=== PATIENT | male | born 1955 | race Caucasian/White ===

== ENCOUNTER 2016-03-08 05:38 | Inpatient (IN) | payer OTHER ==
[~2016-03-08] VITALS: Ht 177.8 cm; Wt 58.1 kg
[~2016-03-08 05:38] MED LIST: BACTDS PO; CEPH-443 PO; METH10TA2 PO; MUPI22OI2 TOP; TRAM50TA2 PO
[2016-03-08 08:33] VITALS: BP 103/65; RESP 18
[2016-03-08 09:50] VITALS: Ht 177.8 cm; Wt 58.1 kg
[2016-03-08] MEDS ORDERED: ONDANSETRON 4 MG TAB PO PRN (10:30)
[2016-03-08] MEDS ORDERED: NACL 0.9% 3 ML SYG IV SCH (10:30)
[2016-03-08] MEDS ORDERED: ACETAMINOPHEN 650 MG SUPP PR PRN (10:30)
[2016-03-08] MEDS ORDERED: ACETAMINOPHEN 325 MG TAB PO PRN (10:30)
[2016-03-08] MEDS ORDERED: DOCUSATE SODIUM 100 MG CAP PO PRN (10:30)
[2016-03-08] MEDS: morphine 2 MG INJ IV PRN ×4 (10:57→23:40)
[2016-03-08] MEDS: SOD CHLORIDE 0.45% 1,000 ML IV SCH ×2 (11:02→23:28)
[2016-03-08] MEDS: LEVOFLOXACIN 500 MG TAB PO SCH (11:03)
[2016-03-08] MEDS: FAMOTIDINE 20 MG TAB PO SCH (11:04)
[2016-03-08] MEDS: METHADONE 10 MG TAB PO SCH (11:04)
[2016-03-08] MEDS: ENOXAPARIN 40 MG/0.4 ML SYG SC SCH (11:09)
[2016-03-08] MEDS: OXYCODONE/ACETAMINOPHEN (5/325) TAB PO PRN ×3 (13:31→22:24)
[2016-03-08] MEDS: CLINDAMYCIN 600 MG/D5W (PMX) 50 ML IVPB SCH ×2 (13:48→22:24)
[2016-03-08] MEDS: NICOTINE (21 MG/24 HR) PATCH TRANSDERM SCH (17:07)
--- NOTE | 2016-03-08 18:19 | HP ---
DATE OF ADMISSION: 03/08/2016 GAMBRELER HELPER: Infectious disease. CHIEF COMPLAINT: Left lower extremity infection and cellulitis. HISTORY OF PRESENT ILLNESS: This is a 60-year-old gentleman who unfortunately is homeless with past medical history of heroin abuse on methadone, who recently was injecting heroin in his left lower e xtremity vein. Status post the injection, the patient started to have erythema and swelling of his left lower extremity distally to his knee and erythema is starting to get progressively worse with e xudate from the anterior aspect of his left lower extremity. The patient was seen and evaluated in the emergency room at [facility] and was treated with Zosyn. He had an I and D and seconda ry to insurance purposes, the patient was transferred to [facility]. At this time , the patient denies having any fever, chills, weight gain, weight loss, anorexia. No chest pain, p alpitations, edema, orthopnea. No change in visual acuity, diplopia, photophobia. No headache, diz ziness or lightheadedness. Does complain of having left lower extremity pain during ambulation. No bleeding from the site. No recent travel history. No sick contact. He states that he does not sh are needles, although he uses the same needle over and over secondary to not having the money to buy needles. He does have a history of hepatitis C which he contracted from using heroin. He denies h aving discomfort at this time. PAST MEDICAL AND SURGICAL HISTORY: 1. History of cellulitis in the past. 2. History of heroin abuse. 3. Hepatitis C. MEDICATIONS: Methadone 20 mg p.o. daily. ALLERGIES: INTERFERON AND CODEINE. SOCIAL HISTORY: Positive for heroin use, smoking cigarettes 1 pack a day. He denies any recent use or consumption of alcohol. FAMILY HISTORY: Noncontributory. REVIEW OF SYSTEMS: As above per HPI, otherwise 12 review of systems has been found to be negative. PHYSICAL EXAMINATION: VITAL SIGNS: Temperature 98.2, pulse 57, respiration 18, blood pressure 103/65, oxygen 95% on room air. GENERAL APPEARANCE: The patient is lying in bed comfortably without any distress. He is awake, lui rt, oriented. He is able to answer my questions properly. He is disheveled and unkempt. EYES AND ENT: Conjunctivae and lids are normal. Pupils are normal. Extraocular normal. Hearing g rossly normal. Lips, teeth and gums are normal. Oral mucosa is moist. NECK: Supple. Trachea is midline. No lymphadenopathy. RESPIRATORY: Effort is normal. Clear to auscultation bilaterally. CARDIOVASCULAR: Normal S1, S2. Regular rhythm and rate. No murmur, no bruits, no edema. Peripher al pulses, radial pulses palpable. Cap refill is normal. CHEST: Normal expansion of thorax during inspiration. GASTROINTESTINAL: Abdomen is soft, nontender, not distended. Bowel sounds present. No guarding, n o rebound. GENITOURINARY: Deferred. MUSCULOSKELETAL: Upper and lower extremities within normal limits. Full range of motion. SKIN: There is erythema distally from his left knee all the way to the ankle. Both upper and lower extremity digits are very unkempt and dirty. NEUROLOGIC: Cranial nerves II through XII are grossly intact. PSYCHIATRIC: Normal judgment and insight. Alert and oriented x3. Mood and affect is normal. LABORATORY WORK AND IMAGING: Pending. ASSESSMENT AND PLAN: 1. Left lower extremity cellulitis. Infectious disease doctor has been consulted. Patient has bee n started on clindamycin and Levaquin. The patient is status post incision and drainage at [facility]. Also the patient has been cultured at [facility]. We will follow up the culture. 2. History of heroin abuse. Education was provided. The patient is on methadone. 3. Nicotine dependency on nicotine patch. 4. For deep venous thrombosis prophylaxis, on Lovenox. 5. We will also follow up patient's hepatitis panel and human immunodeficiency virus. 6. For gastrointestinal prophylaxis on Pepcid. 7. We will continue to monitor patient closely. Further recommendations, management and treatment as per clinical course. Total amount of time was spent for evaluation of patient and admission workup 40 minutes. Dictated By: JULIA MORSE/NTS Conf#: [id number] DID#: [id number]
--- NOTE | 2016-03-08 18:43 | CONS ---
DATE OF ADMISSION: 03/08/2016 DATE OF CONSULTATION: 03/08/2016 TYPE OF CONSULTATION: Infectious Disease. REASON FOR CONSULTATION: Antibiotic management. HISTORY OF PRESENT ILLNESS: Chetan Abel is a 60-year-old white male who is admitted with left low er extremity cellulitis. The patient went to [facility] for cellulitis and abscess of th e left lower extremity. He is a heroin abuser and he is homeless. Ten days ago, he injected his kn ee. It became sore. He noticed a bump, and it started to blow up over the last 3 days. He went to [facility], where the abscess was incised and drained, and then he was transferred here fo r insurance purposes. He has no history of high blood pressure, diabetes, heart disease or previous surgeries. SOCIAL HISTORY: He is single, has 1 daughter. Mother and father . He has 1 brother. ALLERGIES: NONE TO PENICILLIN, SULFA OR FOODS. HABITS: He smokes 1 pack per day since he was 14 years old. ETOH: Occasional beers. He was born in [place], [place] but lived in [facility] all of his life, has no recent travel. PHYSICAL EXAMINATION: GENERAL: He is a well-developed, well-nourished male who looks older than his stated age. SKIN: Without generalized rash. HEENT: Within normal limits. NECK: Supple. LYMPH NODES: None palpable. CHEST: Decreased breath sounds at the bases. HEART: Without murmur or gallop. ABDOMEN: Soft, nontender without organosplenomegaly or masses. EXTREMITIES: He has cellulitis, significant erythema from his knee down to his ankle. Pulses are 1 +, distal extremities. RECTAL AND GENITAL: Deferred. NEUROLOGIC: No focal neurological abnormality. IMPRESSION AND PLAN: It seems that HE IS ALLERGIC TO INTERFERON AND CODEINE, so he may be positive for hepatitis C. The patient is currently on clindamycin 600 mg q.8, and he is also on Levaquin. H e is on methadone. Will await the culture reports. I will dictate my findings to the hospitalist. Dictated By: OSORIO CHAKRABORTY MD, JD/PIOTR Conf#: [id number] DID#: [id number]
[2016-03-08 20:32] VITALS: BP 109/72; RESP 18
[2016-03-09] MEDS: OXYCODONE/ACETAMINOPHEN (5/325) TAB PO PRN ×2 (03:13→12:10)
[2016-03-09] MEDS: morphine 2 MG INJ IV PRN ×4 (04:13→22:12)
[2016-03-09 05:35] LABS: HAAIG REFLEX REFLEX FILED
[2016-03-09] MEDS: LEVOFLOXACIN 500 MG TAB PO SCH (05:38)
[2016-03-09] MEDS: CLINDAMYCIN 600 MG/D5W (PMX) 50 ML IVPB SCH ×3 (05:38→22:12)
[2016-03-09 05:47] LABS: BASOPHILS % 0.4 % (0.0-2.0); EOSINOPHILS # 0.1 10^3/ul (0.0-0.5); EOSINOPHILS % 1.4 % (0.0-7.0); HEMATOCRIT 39.4 % (42.0-52.0); HEMOGLOBIN 13.4 g/dl (14.0-18.0); LYMPHOCYTES # 1.5 10^3/ul (0.8-2.9); LYMPHOCYTES % 19.7 % (15.0-51.0); MEAN CORPUSCULAR HEMOGLOBIN 32.1 pg (29.0-33.0); MEAN CORPUSCULAR HGB CONC 33.9 g/dl (32.0-37.0); MEAN CORPUSCULAR VOLUME 94.7 fl (82.0-101.0); MEAN PLATELET VOLUME 7.3 fl (7.4-10.4); MONOCYTE # 0.7 10^3/ul (0.3-0.9); MONOCYTES % 9.1 % (0.0-11.0); NEUTROPHIL # 5.4 10^3/ul (1.6-7.5); NEUTROPHILS % 69.4 % (39.0-77.0); PLATELET COUNT 338 10^3/UL (140-440); RED BLOOD COUNT 4.16 10^6/ul (4.70-6.10); RED CELL DISTRIBUTION WIDTH 12.7 % (11.5-14.5); UNCORRECTED WBC 7.8 10^3/ul (4.8-10.8); WHITE BLOOD COUNT 7.8 10^3/ul (4.8-10.8)
[2016-03-09 05:53] LABS: POTASSIUM 4.3 mmol/L (3.5-5.1)
[2016-03-09 05:55] LABS: CREATININE 0.6 mg/dl (0.61-1.24)
[2016-03-09 05:56] LABS: CALCIUM 8.9 mg/dl (8.4-10.2); CHOL/HDL RATIO 2.7 RATIO; MAGNESIUM 2.2 mg/dl (1.7-2.5)
[2016-03-09 06:44] LABS: CONDITION 1; HEPATITIS B CORE ANTIBODY REACTIVE (NEGATIVE)
[2016-03-09 08:04] VITALS: BP 132/76; RESP 18
[2016-03-09] MEDS: NICOTINE (21 MG/24 HR) PATCH TRANSDERM SCH (08:19)
[2016-03-09] MEDS: FAMOTIDINE 20 MG TAB PO SCH (08:19)
[2016-03-09] MEDS: METHADONE 10 MG TAB PO SCH (08:19)
[2016-03-09] MEDS: ENOXAPARIN 40 MG/0.4 ML SYG SC SCH (08:37)
[2016-03-09] MEDS: SOD CHLORIDE 0.45% 1,000 ML IV SCH (08:47)
--- NOTE | 2016-03-09 13:15 | PN ---
DATE: 03/09/2016 SUBJECTIVE: No changes overnight. The patient is alert, feels better. Looks comfortable, no fever s. LABORATORY: WBC 7.8, no shift. BUN 11, creatinine 0.60. MICROBIOLOGY: Nares swab pending. ANTIMICROBIALS: The patient is on IV clindamycin. PHYSICAL EXAMINATION: GENERAL: A cachectic, middle-aged white man who looks older than his age. The patient is in no dis tress. HEENT: Head atraumatic, normocephalic. Sclerae anicteric. NECK: Supple. CHEST: Rise symmetrical. Breath sounds clear. HEART: S1, S2. ABDOMEN: Soft, bowel tones present. EXTREMITIES: Without cyanosis. Left lower extremity with dressing below knee intact and erythema i s resolving. ASSESSMENT: 1. Left lower extremity cellulitis with abscess, status post incision and drainage. 2. History of heroin abuse and hepatitis C virus. PLAN: The patient remains stable, covered with appropriate antimicrobials, pending wound cultures. Continue left lower extremity elevation. Dictated By: MAGDA TAM CANT HOOKER for OSORIO MENDOSA/PIOTR Conf#: [id number] DID#: [id number]
--- NOTE | 2016-03-09 14:49 | PN ---
Date/Time of Note Date/Time of Note DATE: 03/09/16 TIME: 14:45 Assessment/Plan VTE Prophylaxis VTE Prophylaxis Intervention: LMWH Lines/Catheters IV Catheter Type (from Nrsg): Peripheral IV Urinary Cath still in place: No Assessment/Plan Chief Complaint/Hosp Course S - mod pain; less edema O- vss PE no pallor s1s2 reg; no m r g ctab bs+; nt nd no r r g mild edema; no Homans. mild erythema/warmth of lower ext. A/P 1.Lt Lower Ext Cellulitis; stable, cont atb 2.Heroin ivda; methadone dependent 3.Tobacco abuse 4.Etoh? 5.Ftt/ homeless 6. Chr pain Problems: Exam/Review of Systems Vital Signs Vitals Vital Signs Date Time Temp Pulse Resp B/P Pulse Ox O2 Delivery O2 Flow Rate FiO2 03/09/16 08:04 98.0 58 18 132/76 99 Intake and Output 03/08/16 03/08/16 03/09/16 15:00 23:00 07:00 Intake Total 1350 ml 800 ml Output Total 475 ml Balance 875 ml 800 ml Results Result Diagram: 03/09/16 0505 03/09/16 0505 Results 24 hrs Laboratory Tests Test 03/09/16 05:05 Anion Gap 11 Basophils # 0.0 Basophils % 0.4 Blood Morphology Comment Blood Urea Nitrogen 11 Calcium Level 8.9 Carbon Dioxide Level 31 Chloride Level 101 Cholesterol Level 100 Cholesterol/HDL Ratio 2.7 Creatinine 0.60 L Eosinophils # 0.1 Eosinophils % 1.4 Glucose Level 89 HDL Cholesterol 37 HIV (1&2) Antibody NEGATIVE Hematocrit 39.4 L Hemoglobin 13.4 L Hemoglobin A1c 5.5 Hepatitis B Core Total Antibody REACTIVE H Hepatitis B Surface Antigen NEGATIVE Hepatitis C Antibody REACTIVE H LDL Cholesterol, Calculated 50 Lymphocytes # 1.5 Lymphocytes % 19.7 Magnesium Level 2.2 Mean Corpuscular Hemoglobin 32.1 Mean Corpuscular Hemoglobin Concent 33.9 Mean Corpuscular Volume 94.7 Mean Platelet Volume 7.3 L Monocytes # 0.7 Monocytes % 9.1 Neutrophils # 5.4 Neutrophils % 69.4 Nucleated Red Blood Cells # 0.0 Nucleated Red Blood Cells % 0.0 Platelet Count 338 Potassium Level 4.3 Red Blood Count 4.16 L Red Cell Distribution Width 12.7 Sodium Level 139 Triglycerides Level 63 White Blood Count 7.8 Medications Medications Current Medications Methadone HCl 20 mg 20 mg DAILY PO Last administered on 03/09/16 08:19; Admin Dose 20 MG; Start 03/08/16 at 12:00 Sodium Chloride (1/2 NS) 1,000 ml @ 75 mls/hr [id number] IV Last administered on 03/09/16 08:47; Admin Dose 75 MLS/HR; Start 03/08/16 at 10:08 Ondansetron HCl (Zofran Tab) 4 mg Q6H PRN PO NAUSEA AND/OR VOMITING; Start at 10:30 Acetaminophen (Tylenol Tab) 650 mg Q6H PRN PO PAIN LEVEL 1-3 OR FEVER; Start at 10:30 Acetaminophen (Tylenol Supp) 650 mg Q6H PRN [place] PAIN LEVEL 1-3 OR FEVER; Start 03/08/16 at 10:30 Oxycodone/ Acetaminophen (Percocet (5/ 325)) 1 tab Q6H PRN PO MODERATE PAIN LEVEL 4-6 Last administered on 03/09/16 12:10; Admin Dose 1 TAB; Start at 10:30 Morphine Sulfate (morphine) 2 mg Q4H PRN IV SEVERE PAIN LEVEL 7-10 Last administered on 03/09/16 14:26; Admin Dose 2 MG; Start 03/08/16 at 10:30 Docusate Sodium (Colace) 100 mg Q12H PRN PO CONSTIPATION; Start 03/08/16 at 10: 30 Famotidine (Pepcid) 20 mg QAM PO Last administered on 03/09/16 08:19; Admin Dose 20 MG; Start 03/08/16 at 11:00 Enoxaparin Sodium 40 mg 40 mg DAILY SC Last administered on 03/09/16 08:37; Admin Dose 40 MG; Start 03/08/16 at 11:00 Clindamycin HCl/ Dextrose (Cleocin 600 Mg/ D5W (Pmx)) 50 ml @ 50 mls/hr Q8 IVPB Last administered on 03/09/16 05:38; Admin Dose 50 MLS/HR; Start 03/08/16 at 12:00 Levofloxacin (Levaquin) 500 mg DAILY@06 PO Last administered on 03/09/16 05:38 ; Admin Dose 500 MG; Start 03/08/16 at 11:00 Nicotine (Nicoderm 21 Mg/ 24hr) 1 patch DAILY TRANSDERM Last administered on t 08:19; Admin Dose 1 PATCH; Start 03/08/16 at 15:30 CONNOR SOTO MD Mar 09, 2016 14:49
[2016-03-09] MEDS: HYDROCODONE/APAP (10/325) TAB PO PRN ×3 (17:15→23:47)
[2016-03-09 19:20] VITALS: BP 122/74; RESP 16
[2016-03-10] MEDS: morphine 2 MG INJ IV PRN ×4 (03:41→20:33)
[2016-03-10] MEDS: SOD CHLORIDE 0.45% 1,000 ML IV SCH (03:41)
[2016-03-10] MEDS: CLINDAMYCIN 600 MG/D5W (PMX) 50 ML IVPB SCH ×2 (06:25→14:27)
[2016-03-10] MEDS: HYDROCODONE/APAP (10/325) TAB PO PRN ×5 (06:26→21:44)
[2016-03-10] MEDS: LEVOFLOXACIN 500 MG TAB PO SCH (06:26)
[2016-03-10 08:00] VITALS: BP 101/50; RESP 18
[2016-03-10] MEDS: FAMOTIDINE 20 MG TAB PO SCH (09:00)
[2016-03-10] MEDS: METHADONE 10 MG TAB PO SCH (09:00)
[2016-03-10] MEDS: ENOXAPARIN 40 MG/0.4 ML SYG SC SCH (09:00)
[2016-03-10] MEDS: NICOTINE (21 MG/24 HR) PATCH TRANSDERM SCH (09:01)
--- NOTE | 2016-03-10 11:23 | PN ---
Date/Time of Note Date/Time of Note DATE: 03/10/16 TIME: 11:22 Assessment/Plan VTE Prophylaxis VTE Prophylaxis Intervention: LMWH Lines/Catheters IV Catheter Type (from Nrsg): Peripheral IV Urinary Cath still in place: No Assessment/Plan Chief Complaint/Hosp Course S 03/09- mod pain; less edema 03/10 states he is always in pain. I feel there is an element of pain seeking behavior. O- vss PE no pallor s1s2 reg; no m r g ctab bs+; nt nd no r r g mild edema; no Homans. mild erythema of lower lt ext. A/P 1.Lt Lower Ext Cellulitis; stable, cont atb/wound care. Packing may need to be changed. 2.Heroin ivda; methadone dependent 3.Tobacco abuse 4.Etoh? 5.Ftt/ homeless 6. Chr pain 7. Hep C viremia. Possible hep B as well. Problems: Exam/Review of Systems Vital Signs Vitals Vital Signs Date Time Temp Pulse Resp B/P Pulse Ox O2 Delivery O2 Flow Rate FiO2 03/10/16 08:00 97.4 50 18 101/50 100 Intake and Output 03/09/16 03/09/16 03/10/16 15:00 23:00 07:00 Intake Total 250 ml 2445 ml 1130 ml Output Total 4 ml Balance 250 ml 2441 ml 1130 ml Results Result Diagram: 03/09/16 0505 03/09/16 0505 Medications Medications Current Medications Methadone HCl 20 mg 20 mg DAILY PO Last administered on 03/10/16 09:00; Admin Dose 20 MG; Start 03/08/16 at 12:00 Sodium Chloride (1/2 NS) 1,000 ml @ 75 mls/hr [id number] IV Last administered on 03/10/16 03:41; Admin Dose 75 MLS/HR; Start 03/08/16 at 10:08 Ondansetron HCl (Zofran Tab) 4 mg Q6H PRN PO NAUSEA AND/OR VOMITING; Start at 10:30 Acetaminophen (Tylenol Tab) 650 mg Q6H PRN PO PAIN LEVEL 1-3 OR FEVER; Start at 10:30 Acetaminophen (Tylenol Supp) 650 mg Q6H PRN [place] PAIN LEVEL 1-3 OR FEVER; Start 03/08/16 at 10:30 Morphine Sulfate (morphine) 2 mg Q4H PRN IV SEVERE PAIN LEVEL 7-10 Last administered on 03/10/16 03:41; Admin Dose 2 MG; Start 03/08/16 at 10:30 Docusate Sodium (Colace) 100 mg Q12H PRN PO CONSTIPATION; Start 03/08/16 at 10: 30 Famotidine (Pepcid) 20 mg QAM PO Last administered on 03/10/16 09:00; Admin Dose 20 MG; Start 03/08/16 at 11:00 Enoxaparin Sodium 40 mg 40 mg DAILY SC Last administered on 03/09/16 08:37; Admin Dose 40 MG; Start 03/08/16 at 11:00 Clindamycin HCl/ Dextrose (Cleocin 600 Mg/ D5W (Pmx)) 50 ml @ 50 mls/hr Q8 IVPB Last administered on 03/10/16 06:25; Admin Dose 50 MLS/HR; Start 03/08/16 at 12:00 Levofloxacin (Levaquin) 500 mg DAILY@06 PO Last administered on 03/10/16 06:26 ; Admin Dose 500 MG; Start 03/08/16 at 11:00 Nicotine (Nicoderm 21 Mg/ 24hr) 1 patch DAILY TRANSDERM Last administered on 09:01; Admin Dose 1 PATCH; Start 03/08/16 at 15:30 Acetaminophen/ Hydrocodone Bitart ([place] (10/325)) 1 tab Q3H PRN PO PAIN Last administered on 03/10/16 10:54; Admin Dose 1 TAB; Start 03/09/16 at 15:00 CONNOR SOTO MD Mar 10, 2016 11:23
[2016-03-10] MEDS ORDERED: TETANUS IMMUNE GLOB 250 UNIT SYG IM ONE (14:30)
[2016-03-10] MEDS: CEFAZOLIN 1 GM/50 ML (PMX) 50 ML IVPB SCH (18:37)
[2016-03-10 19:00] VITALS: BP 137/70; RESP 19
[2016-03-10] MEDS: LACTOBACILLUS CHEW TAB PO SCH (20:33)
--- NOTE | 2016-03-10 21:13 | PN ---
DATE: 03/10/2016 SUBJECTIVE: No changes. The patient is alert, looks comfortable, No fevers. No labs this morning . ANTIMICROBIALS: Clindamycin. MICROBIOLOGY: Wound culture growing Staphylococcus aureus that is resistant to clindamycin, but kaur ceptible to Ancef, Cipro, Levaquin and oxacillin; also Bactrim. PHYSICAL EXAMINATION GENERAL: Well-developed, middle-aged, white man in no distress. HEENT: Head atraumatic, normocephalic. Sclerae are anicteric. Buccal mucosa dry. NECK: Supple, trachea midline. CHEST: Rise symmetrical. Breath sounds clear, diminished to bases. HEART: S1, S2. ABDOMEN: Soft, bowel tones present. EXTREMITIES: Left lower extremity erythema, persists. ASSESSMENT 1. Left lower extremity cellulitis with methicillin-resistant Staphylococcus aureus abscesses drain age. 2. History of IV drug abuse. 3. Cachexia. 4. History of hepatitis C virus. PLAN: We are going to change clindamycin to Bactrim or Ancef. Continue local wound care and elevat ion and anticipate discharge on oral Bactrim once patient is cleared for discharge. Dictated By: MAGDA TAM GREY ROLL WORKER for OSORIO MENDOSA/PIOTR Conf#: [id number] DID#: [id number]
[2016-03-11] MEDS: CEFAZOLIN 1 GM/50 ML (PMX) 50 ML IVPB SCH ×5 (00:56→23:16)
[2016-03-11] MEDS: morphine 2 MG INJ IV PRN ×6 (00:56→23:12)
[2016-03-11] MEDS: HYDROCODONE/APAP (10/325) TAB PO PRN ×5 (01:52→21:11)
[2016-03-11] MEDS: LEVOFLOXACIN 500 MG TAB PO SCH (05:06)
[2016-03-11 05:47] LABS: BASOPHILS % 0.6 % (0.0-2.0); EOSINOPHILS # 0.1 10^3/ul (0.0-0.5); EOSINOPHILS % 2.3 % (0.0-7.0); HEMATOCRIT 41.3 % (42.0-52.0); HEMOGLOBIN 13.9 g/dl (14.0-18.0); LYMPHOCYTES # 1.7 10^3/ul (0.8-2.9); MEAN CORPUSCULAR HEMOGLOBIN 31.8 pg (29.0-33.0); MEAN CORPUSCULAR HGB CONC 33.5 g/dl (32.0-37.0); MEAN CORPUSCULAR VOLUME 94.8 fl (82.0-101.0); MEAN PLATELET VOLUME 7.5 fl (7.4-10.4); MONOCYTE # 0.6 10^3/ul (0.3-0.9); MONOCYTES % 9.2 % (0.0-11.0); NEUTROPHIL # 3.7 10^3/ul (1.6-7.5); NEUTROPHILS % 59.9 % (39.0-77.0); PLATELET COUNT 356 10^3/UL (140-440); RED BLOOD COUNT 4.36 10^6/ul (4.70-6.10); UNCORRECTED WBC 6.2 10^3/ul (4.8-10.8); WHITE BLOOD COUNT 6.2 10^3/ul (4.8-10.8)
[2016-03-11 05:56] LABS: POTASSIUM 4.4 mmol/L (3.5-5.1)
[2016-03-11 05:58] LABS: CREATININE 0.65 mg/dl (0.61-1.24)
[2016-03-11 05:59] LABS: CALCIUM 9.1 mg/dl (8.4-10.2)
[2016-03-11 06:01] LABS: CONDITION 1
[2016-03-11 07:21] VITALS: BP 101/68; RESP 16
[2016-03-11] MEDS: LACTOBACILLUS CHEW TAB PO SCH ×2 (08:14→21:07)
[2016-03-11] MEDS: METHADONE 10 MG TAB PO SCH (08:14)
[2016-03-11] MEDS: FAMOTIDINE 20 MG TAB PO SCH (08:14)
[2016-03-11] MEDS: ENOXAPARIN 40 MG/0.4 ML SYG SC SCH (08:15)
[2016-03-11] MEDS: NICOTINE (21 MG/24 HR) PATCH TRANSDERM SCH (08:15)
--- NOTE | 2016-03-11 11:18 | PN ---
Date/Time of Note Date/Time of Note DATE: 03/11/16 TIME: 11:17 Assessment/Plan VTE Prophylaxis VTE Prophylaxis Intervention: LMWH Lines/Catheters IV Catheter Type (from Nrs): Saline Lock Urinary Cath still in place: No Assessment/Plan Chief Complaint/Hosp Course S 03/09- mod pain; less edema 03/10 states he is always in pain. I feel there is an element of pain seeking behavior. 03/11 less pain and swelling. No toxicity. O- vss PE no pallor s1s2 reg; no m r g ctab bs+; nt nd no r r g no edema; less erythema of lower lt ext. A/P 1.Lt Lower Ext Cellulitis; stable, cont atb/wound care. Packing changed. Discharge on Bactrim tomorrow. May need wound care for packing 2.Heroin ivda; methadone dependent 3.Tobacco abuse 4.Etoh? 5.Ftt/ homeless 6. Chr pain 7. Hep C viremia. Possible hep B as well. Problems: Exam/Review of Systems Vital Signs Vitals Vital Signs Date Time Temp Pulse Resp B/P Pulse Ox O2 Delivery O2 Flow Rate FiO2 03/11/16 07:21 97.2 54 16 101/68 99 Intake and Output 03/10/16 03/10/16 03/11/16 15:00 23:00 07:00 Intake Total 1675 ml 720 ml Output Total 2 ml 801 ml Balance 1673 ml -81 ml Results Result Diagram: 03/11/16 0453 03/11/16 0453 Results 24 hrs Laboratory Tests Test 03/11/16 04:53 Anion Gap 16 Basophils # 0.0 Basophils % 0.6 Blood Urea Nitrogen 16 Calcium Level 9.1 Carbon Dioxide Level 29 Chloride Level 100 Creatinine 0.65 Eosinophils # 0.1 Eosinophils % 2.3 Glucose Level 93 Hematocrit 41.3 L Hemoglobin 13.9 L Lymphocytes # 1.7 Lymphocytes % 28.0 Mean Corpuscular Hemoglobin 31.8 Mean Corpuscular Hemoglobin Concent 33.5 Mean Corpuscular Volume 94.8 Mean Platelet Volume 7.5 Monocytes # 0.6 Monocytes % 9.2 Neutrophils # 3.7 Neutrophils % 59.9 Nucleated Red Blood Cells # 0.0 Nucleated Red Blood Cells % 0.0 Platelet Count 356 Potassium Level 4.4 Red Blood Count 4.36 L Red Cell Distribution Width 13.0 Sodium Level 141 White Blood Count 6.2 # Medications Medications Current Medications Methadone HCl (Methadone) 20 mg DAILY PO Last administered on 03/11/16 08:14; Admin Dose 20 MG; Start 03/08/16 at 12:00 Ondansetron HCl (Zofran Tab) 4 mg Q6H PRN PO NAUSEA AND/OR VOMITING; Start at 10:30 Acetaminophen (Tylenol Tab) 650 mg Q6H PRN PO PAIN LEVEL 1-3 OR FEVER; Start at 10:30 Acetaminophen (Tylenol Supp) 650 mg Q6H PRN [place] PAIN LEVEL 1-3 OR FEVER; Start 03/08/16 at 10:30 Morphine Sulfate (morphine) 2 mg Q4H PRN IV SEVERE PAIN LEVEL 7-10 Last administered on 03/11/16 10:10; Admin Dose 2 MG; Start 03/08/16 at 10:30 Docusate Sodium (Colace) 100 mg Q12H PRN PO CONSTIPATION; Start 03/08/16 at 10: 30 Famotidine (Pepcid) 20 mg QAM PO Last administered on 03/11/16 08:14; Admin Dose 20 MG; Start 03/08/16 at 11:00 Enoxaparin Sodium (Lovenox) 40 mg DAILY SC Last administered on 03/09/16 08:37 ; Admin Dose 40 MG; Start 03/08/16 at 11:00 Levofloxacin (Levaquin) 500 mg DAILY@06 PO Last administered on 03/11/16 05:06 ; Admin Dose 500 MG; Start 03/08/16 at 11:00 Nicotine (Nicoderm 21 Mg/ 24hr) 1 patch DAILY TRANSDERM Last administered on 08:15; Admin Dose 1 PATCH; Start 03/08/16 at 15:30 Acetaminophen/ Hydrocodone Bitart ([place] (10/325)) 1 tab Q3H PRN PO PAIN Last administered on 03/11/16 06:17; Admin Dose 1 TAB; Start 03/09/16 at 15:00 Lactobacillus Acidoph/ [place] 1 tab 1 tab BID PO Last administered on 08:14; Admin Dose 1 TAB; Start 03/10/16 at 21:00 Cefazolin Sodium (Ancef 1 Gm/50 ml (Pmx)) 50 ml @ 100 mls/hr Q6 IVPB Last administered on 03/11/16t 05:06; Admin Dose 100 MLS/HR; Start 03/10/16 at 18:00 CONNOR SOTO MD Mar 11, 2016 11:18
[2016-03-11] MEDS ORDERED: IBUPROFEN 800 MG TAB PO PRN (11:30)
--- NOTE | 2016-03-11 14:44 | CONS ---
Date/Time of Note Date/Time of Note DATE: 03/11/16 TIME: 14:42 Assessment/Plan Assessment/Plan Chief Complaint/Hosp Course No acute events, lying comfortably in bed, no fevers ANTIMICROBIALS: Ancef MICROBIOLOGY: Wound culture growing Staphylococcus aureus that is resistant to clindamycin, but susceptible to Ancef, Cipro, Levaquin and oxacillin; also Bactrim. PHYSICAL EXAMINATION GENERAL: Well-developed, cachectic, middle-aged, white man in no distress. HEENT: Head atraumatic, normocephalic. Sclerae are anicteric. Buccal mucosa dry. NECK: Supple, trachea midline. CHEST: Rise symmetrical. Breath sounds clear, diminished to bases. HEART: S1, S2. ABDOMEN: Soft, bowel tones present. EXTREMITIES: Left lower extremity erythema, persists. ASSESSMENT 1. Left lower extremity cellulitis, s/p MSSA abscesses drainage. 2. History of IV drug abuse. 3. Cachexia. 4. History of hepatitis C virus. PLAN: Stable, continue abx Continue local wound care and elevation and anticipate discharge on oral Bactrim once patient is cleared for discharge. DW staff Problems: Consultation Date/Type/Reason Admit Date/Time Mar 08, 2016 at 07:34 Initial Consult Date Type of Consultation: ID Exam/Review of Systems Vital Signs Vitals Vital Signs Date Time Temp Pulse Resp B/P Pulse Ox O2 Delivery O2 Flow Rate FiO2 03/11/16 07:21 97.2 54 16 101/68 99 Intake and Output 03/10/16 03/10/16 03/11/16 15:00 23:00 07:00 Intake Total 1675 ml 720 ml Output Total 2 ml 801 ml Balance 1673 ml -81 ml Results Result Diagram: 03/11/16 0453 03/11/16 0453 Results 24 hrs Laboratory Tests Test 03/11/16 04:53 Anion Gap 16 Basophils # 0.0 Basophils % 0.6 Blood Urea Nitrogen 16 Calcium Level 9.1 Carbon Dioxide Level 29 Chloride Level 100 Creatinine 0.65 Eosinophils # 0.1 Eosinophils % 2.3 Glucose Level 93 Hematocrit 41.3 L Hemoglobin 13.9 L Lymphocytes # 1.7 Lymphocytes % 28.0 Mean Corpuscular Hemoglobin 31.8 Mean Corpuscular Hemoglobin Concent 33.5 Mean Corpuscular Volume 94.8 Mean Platelet Volume 7.5 Monocytes # 0.6 Monocytes % 9.2 Neutrophils # 3.7 Neutrophils % 59.9 Nucleated Red Blood Cells # 0.0 Nucleated Red Blood Cells % 0.0 Platelet Count 356 Potassium Level 4.4 Red Blood Count 4.36 L Red Cell Distribution Width 13.0 Sodium Level 141 White Blood Count 6.2 # Medications Medications Current Medications Methadone HCl (Methadone) 20 mg DAILY PO Last administered on 03/11/16 08:14; Admin Dose 20 MG; Start 03/08/16 at 12:00 Ondansetron HCl (Zofran Tab) 4 mg Q6H PRN PO NAUSEA AND/OR VOMITING; Start at 10:30 Acetaminophen (Tylenol Tab) 650 mg Q6H PRN PO PAIN LEVEL 1-3 OR FEVER; Start at 10:30 Acetaminophen (Tylenol Supp) 650 mg Q6H PRN [place] PAIN LEVEL 1-3 OR FEVER; Start 03/08/16 at 10:30 Morphine Sulfate (morphine) 2 mg Q4H PRN IV SEVERE PAIN LEVEL 7-10 Last administered on 03/11/16 14:35; Admin Dose 2 MG; Start 03/08/16 at 10:30 Docusate Sodium (Colace) 100 mg Q12H PRN PO CONSTIPATION; Start 03/08/16 at 10: 30 Famotidine (Pepcid) 20 mg QAM PO Last administered on 03/11/16 08:14; Admin Dose 20 MG; Start 03/08/16 at 11:00 Enoxaparin Sodium (Lovenox) 40 mg DAILY SC Last administered on 03/09/16 08:37 ; Admin Dose 40 MG; Start 03/08/16 at 11:00 Nicotine (Nicoderm 21 Mg/ 24hr) 1 patch DAILY TRANSDERM Last administered on 08:15; Admin Dose 1 PATCH; Start 03/08/16 at 15:30 Acetaminophen/ Hydrocodone Bitart ([place] (10/325)) 1 tab Q3H PRN PO PAIN Last administered on 03/11/16 11:24; Admin Dose 1 TAB; Start 03/09/16 at 15:00 Lactobacillus Acidoph/ [place] 1 tab 1 tab BID PO Last administered on 08:14; Admin Dose 1 TAB; Start 03/10/16 at 21:00 Cefazolin Sodium (Ancef 1 Gm/50 ml (Pmx)) 50 ml @ 100 mls/hr Q6 IVPB Last administered on 03/11/16t 11:23; Admin Dose 100 MLS/HR; Start 03/10/16 at 18:00 Ibuprofen (Motrin) 800 mg Q6H PRN PO MILD PAIN LEVEL 1-3; Start 03/11/16 at 11: 30 MAGDA TAM NP Mar 11, 2016 14:44
[2016-03-11 21:01] VITALS: BP 100/55; RESP 12
[2016-03-12] MEDS: HYDROCODONE/APAP (10/325) TAB PO PRN ×3 (00:37→10:55)
[2016-03-12] MEDS: CEFAZOLIN 1 GM/50 ML (PMX) 50 ML IVPB SCH (05:31)
[2016-03-12 07:53] VITALS: BP 113/62; RESP 20
[2016-03-12] MEDS: NICOTINE (21 MG/24 HR) PATCH TRANSDERM SCH (08:40)
[2016-03-12] MEDS: LACTOBACILLUS CHEW TAB PO SCH (08:40)
[2016-03-12] MEDS: METHADONE 10 MG TAB PO SCH (08:41)
[2016-03-12] MEDS: FAMOTIDINE 20 MG TAB PO SCH (08:41)
[2016-03-12] MEDS ORDERED: TRIMETHOPRIM/SULFAMETHOX (DS) TAB PO SCH (09:00)
[2016-03-12] MEDS: ENOXAPARIN 40 MG/0.4 ML SYG SC SCH (09:12)
[2016-03-12] MEDS: morphine 2 MG INJ IV PRN (09:19)
[2016-03-12 09:41] LABS: BASOPHILS % 0.2 % (0.0-2.0); EOSINOPHILS # 0.1 10^3/ul (0.0-0.5); EOSINOPHILS % 1.3 % (0.0-7.0); HEMATOCRIT 39.6 % (42.0-52.0); HEMOGLOBIN 13.2 g/dl (14.0-18.0); LYMPHOCYTES % 28.4 % (15.0-51.0); MEAN CORPUSCULAR HGB CONC 33.4 g/dl (32.0-37.0); MEAN PLATELET VOLUME 7.3 fl (7.4-10.4); MONOCYTE # 0.6 10^3/ul (0.3-0.9); MONOCYTES % 9.2 % (0.0-11.0); NEUTROPHIL # 4.3 10^3/ul (1.6-7.5); NEUTROPHILS % 60.9 % (39.0-77.0); PLATELET COUNT 377 10^3/UL (140-440); RED BLOOD COUNT 4.12 10^6/ul (4.70-6.10); RED CELL DISTRIBUTION WIDTH 12.8 % (11.5-14.5)
[2016-03-12 09:44] LABS: ALBUMIN 3.6 g/dl (3.3-4.9); POTASSIUM 4.3 mmol/L (3.5-5.1)
[2016-03-12 09:46] LABS: CREATININE 0.63 mg/dl (0.61-1.24)
[2016-03-12 09:47] LABS: ALBUMIN/GLOBULIN RATIO 0.9; TOTAL PROTEIN 7.6 g/dl (6.1-8.1)
[2016-03-12 10:08] LABS: CONDITION 1
--- NOTE | 2016-03-12 12:09 | DS ---
Date/Time of Note Date/Time of Note DATE: 03/12/16 TIME: 12:05 Discharge Summary Admission/Discharge Info Admit Date/Time Mar 08, 2016 at 07:34 Discharge Date/Time Final Diagnosis 1.Lt Lower Ext Cellulitis; stable, Bactrim, follow up with PCP 2.Heroin ivda; methadone dependent 3.Tobacco abuse 4. Hepatitis B and C, follow up with PCP. Patient Condition: Stable Hx of Present Illness This is a 60-year-old gentleman who unfortunately is homeless with past medical history of heroin abuse on methadone, who recently was injecting heroin in his left lower extremity vein. Status post the injection, the patient started to have erythema and swelling of his left lower extremity distally to his knee and erythema is starting to get progressively worse with exudate from the anterior aspect of his left lower extremity. The patient was seen and evaluated in the emergency room at [facility] and was treated with Zosyn. He had an I and D and secondary to insurance purposes, the patient was transferred to [facility]. At this time, the patient denies having any fever , chills, weight gain, weight loss, anorexia. No chest pain, palpitations, edema, orthopnea. No change in visual acuity, diplopia, photophobia. No headache, dizziness or lightheadedness. Does complain of having left lower extremity pain during ambulation. No bleeding from the site. No recent travel history. No sick contact. He states that he does not share needles, although he uses the same needle over and over secondary to not having the money to buy needles. He does have a history of hepatitis C which he contracted from using heroin. He denies having discomfort at this time. Hospital Course here is erythema distally from his left knee all the way to the ankle. Patient is treated with antibiotics and wound care for cellulitis and wound. Symptoms improves. afebrile. Patient will be discharged with oral bactrim and follow up with PCP outpatient. Home Meds Active Scripts Sulfamethoxazole-Trimethoprim* (Bactrim* DS) 800-160 Mg Tab, 1 TAB PO BID for 10 Days, #20 TAB Prov:NICHOLE KRAUSE MD 03/12/16 Reported Medications Methadone Hcl* (Methadone*) 10 Mg Tab, 20 MG PO DAILY, TAB 01/26/15 Discontinued Scripts Tramadol HCl (Tramadol HCl) 50 Mg Tablet, 50 MG PO Q6, #20 TAB Prov:ESTHER WALLIS. DO 01/26/15 Mupirocin* (Bactroban*) 2% -22 Gram Oint...g., 1 APPLIC TOP BID for 7 Days, EA apply a small amount to the inside of both nostrils twice a day Prov:ESTHER WALLIS. DO 01/26/15 Cephalexin* (Keflex*) 500 Mg Capsule, 500 MG PO QID for 5 Days, CAP Prov:ESTHER WALLIS A. DO 01/26/15 Sulfamethoxazole-Trimethoprim* (Bactrim* DS) 800-160 Mg Tab, 1 TAB PO BID for 10 Days, TAB Prov:ESTHER WALLIS. DO 01/26/15 Follow-up Plan PCP in [facility] [facility] Pending Labs Laboratory Tests Test 03/12/16 08:51 03/12/16 09:15 Lab Scanned Report REFERENCE [id number] Alanine Aminotransferase (ALT/SGPT) 42IU/L (13-69) Albumin 3.6g/dl (3.3-4.9) Albumin/Globulin Ratio 0.90 Alkaline Phosphatase 91IU/L (42-121) Anion Gap 16 (8-16) Aspartate Amino Transf (AST/SGOT) 45IU/L (15-46) Basophils # 0.010^3/ul (0.0-0.1) Basophils % 0.2% (0.0-2.0) Blood Morphology Comment Blood Urea Nitrogen 16mg/dl (7-20) Calcium Level 9.0mg/dl (8.4-10.2) Carbon Dioxide Level 26mmol/L (21-31) Chloride Level 101mmol/L (97-110) Creatinine 0.63mg/dl (0.61-1.24) Direct Bilirubin 0.00mg/dl (0.00-0.20) Eosinophils # 0.110^3/ul (0.0-0.5) Eosinophils % 1.3% (0.0-7.0) Globulin 4.00g/dl (1.3-3.2) Glucose Level 94mg/dl (70-220) Hematocrit 39.6% (42.0-52.0) Hemoglobin 13.2g/dl (14.0-18.0) Indirect Bilirubin 0.0mg/dl (0-1.1) Lymphocytes # 2.010^3/ul (0.8-2.9) Lymphocytes % 28.4% (15.0-51.0) Mean Corpuscular Hemoglobin 32.0pg (29.0-33.0) Mean Corpuscular Hemoglobin Concent 33.4g/dl (32.0-37.0) Mean Corpuscular Volume 96.0fl (82.0-101.0) Mean Platelet Volume 7.3fl (7.4-10.4) Monocytes # 0.610^3/ul (0.3-0.9) Monocytes % 9.2% (0.0-11.0) Neutrophils # 4.310^3/ul (1.6-7.5) Neutrophils % 60.9% (39.0-77.0) Nucleated Red Blood Cells # 0.010^3/ul (0.0-0.0) Nucleated Red Blood Cells % 0.0/100WBC (0.0-0.0) Platelet Count 04706^3/UL (140-440) Potassium Level 4.3mmol/L (3.5-5.1) Red Blood Count 4.1210^6/ul (4.70-6.10) Red Cell Distribution Width 12.8% (11.5-14.5) Sodium Level 139mmol/L (135-144) Total Bilirubin 0.0mg/dl (0.2-1.3) Total Protein 7.6g/dl (6.1-8.1) White Blood Count 7.010^3/ul (4.8-10.8) NICHOLE KRAUSE MD Mar 12, 2016 12:09 Total Bilirubin 0.0mg/dl (0.2-1.3) Total Protein 7.6g/dl (6.1-8.1) White Blood Count 7.010^3/ul (4.8-10.8) NICHOLE KRAUSE MD Mar 12, 2016 12:09
[2016-03-12] MEDS ORDERED: BACTDS PO (12:18)
== END 2016-03-12 14:00 | disposition home or self-care (01) | DRG 603 ==
LOC: MS2 07:34
PROVIDERS: ADMIT Internal Medicine; ATTEND Internal Medicine
DX: L03.116 Cellulitis of left lower limb (principal); R64 Cachexia; F11.20 Opioid dependence, uncomplicated; B18.1 Chronic viral hepatitis B without delta-agent; Z68.1 Body mass index [BMI] 19.9 or less, adult; B95.61 Methicillin susceptible Staphylococcus aureus infection as the cause of diseases classified elsewhere; Z16.11 Resistance to penicillins; F17.210 Nicotine dependence, cigarettes, uncomplicated; B18.2 Chronic viral hepatitis C; R62.7 Adult failure to thrive; G89.29 Other chronic pain; Z59.0 Homelessness
CPT/HCPCS: 80048; 80053; 80061; 83036; 83735; 85025; 86703; 86704; 86709; 86803; 87070; 87081; 87340; 90389; J0690; J1650; J2270